=== PATIENT | male | born 1955 | race Caucasian/White ===

== ENCOUNTER 2022-07-27 14:34 | Inpatient (IN) | payer OTHER ==
[2022-07-27 14:56] VITALS: BMI 26.5
[2022-07-27] MEDS ORDERED: ONDANSETRON *ODT* 4 MG TABLET SL PRN (15:11)
[2022-07-27] MEDS ORDERED: METHOCARBAMOL 500 MG TABLET PO PRN (15:11)
[2022-07-27] MEDS ORDERED: MAGNESIUM HYDROX 2400MG/30ML ORAL SUSPENSION 30 ML CUP PO PRN (15:11)
[2022-07-27] MEDS ORDERED: IBUPROFEN 400 MG TABLET (FP) PO PRN (15:11)
[2022-07-27] MEDS ORDERED: POLYETHYLENE GLYCOL (HEALTHYLAX) 3350 17 GM PACKET PO PRN (15:11)
[2022-07-27] MEDS ORDERED: MAG HYDROX/AL HYDROX/SIMETH 30 ML UNIT-DOSE CUP PO PRN (15:11)
[2022-07-27] MEDS ORDERED: LORazepam 1 MG TABLET PO PRN (15:11)
[2022-07-27] MEDS ORDERED: NICOTINE 10 MG CARTRIDGE (INHALER) IH PRN (15:11)
[2022-07-27] MEDS ORDERED: BENZOCAINE/MENTHOL (CHLORASEPTIC ) LOZENGE MM PRN (15:11)
[2022-07-27] MEDS ORDERED: BISMUTH SUBSALICYLATE 524 MG/30 ML PO PRN (15:11)
[2022-07-27] MEDS ORDERED: DICYCLOMINE HCL 10 MG CAPSULE PO PRN (15:11)
[2022-07-27] MEDS ORDERED: hydrOXYzine PAMOATE 25 MG CAPSULE (FP) PO PRN (15:11)
[2022-07-27] MEDS ORDERED: ACETAMINOPHEN 325 MG TABLET (FP) PO PRN ×2 (15:11)
[2022-07-27] MEDS ORDERED: NALOXONE HCL (KLOXXADO) 8 MG SPRAY NS PRN (15:11)
[2022-07-27] MEDS ORDERED: LOPERAMIDE HCL 2 MG CAPSULE PO PRN (15:11)
[2022-07-27] MEDS ORDERED: cloNIDine HCL 0.1 MG TABLET PO STA ×2 (15:32→16:14)
[2022-07-27] MEDS ORDERED: LORazepam 2 MG TABLET PO ONE (15:36)
[2022-07-27] MEDS ORDERED: LORazepam 2 MG TABLET ONE (15:53)
[2022-07-27] MEDS ORDERED: cloNIDine HCL 0.1 MG TABLET ONE (15:53)
[2022-07-27] MEDS: IBUPROFEN 600 MG TABLET (FP) PO PRN (15:55)
[2022-07-27] MEDS ORDERED: IBUPROFEN 600 MG TABLET (FP) PO ONE (15:55)
[2022-07-27] MEDS: PRENATAL VITAMINS W/ FOLIC ACID TABLET (FP) PO SCH (16:00)
[2022-07-27] MEDS: LORazepam 2 MG TABLET PO SCH ×2 (17:30→22:31)
[2022-07-27] MEDS ORDERED: MELATONIN 5 MG TABLETS PO SCH (22:00)
[2022-07-27] MEDS: THIAMINE HCL 100 MG TABLET (FP) PO SCH (22:32)
[2022-07-28] MEDS: LORazepam 2 MG TABLET PO SCH ×4 (05:09→22:01)
[2022-07-28] MEDS: PRENATAL VITAMINS W/ FOLIC ACID TABLET (FP) PO SCH (10:17)
[2022-07-28 11:00] LABS: CALCIUM 8.6 mg/dL (8.5-10.1)
[2022-07-28 11:01] LABS: ALBUMIN 3.5 g/dl (3.4-5.0); BLOOD UREA NITROGEN 15.3 mg/dL (7-18)
[2022-07-28 11:04] LABS: CREATININE 0.9 mg/dL (0.55-1.3); HEMATOCRIT 47.5 % (35.4-49); HEMOGLOBIN 15.8 GM/dL (11.7-16.9); MCH 31.4 pg (25.7-33.7); MCHC 33.3 g/dl (32.0-35.9); MEAN CELL VOLUME 94.1 fl (80-96); MEAN PLT VOLUME 9.3 fl (7.5-11.1); PLATELET COUNT 188 10^3/uL (134-434); RBC 5.05 M/mm3 (4.00-5.60); WHITE BLOOD COUNT 7.4 K/mm3 (4.0-10.0)
[2022-07-28 11:05] LABS: BILIRUBIN,TOTAL 1.1 mg/dL (0.2-1)
[2022-07-28 11:06] LABS: TOT PROT 6.9 g/dl (6.4-8.2)
[2022-07-28] MEDS: LACTULOSE 20 GM/30 ML UDC (FOR ORAL USE ONLY) PO SCH ×2 (14:37→22:01)
[2022-07-28] MEDS: IBUPROFEN 600 MG TABLET (FP) PO PRN (22:00)
[2022-07-28] MEDS: THIAMINE HCL 100 MG TABLET (FP) PO SCH (22:00)
[2022-07-28] MEDS ORDERED: SUVOREXANT 10 MG TABLET PO PRN (22:00)
[2022-07-29] MEDS: LACTULOSE 20 GM/30 ML UDC (FOR ORAL USE ONLY) PO SCH ×3 (05:21→22:23)
[2022-07-29] MEDS: LORazepam 1 MG TABLET PO SCH ×4 (05:21→22:24)
[2022-07-29] MEDS: PRENATAL VITAMINS W/ FOLIC ACID TABLET (FP) PO SCH (10:21)
[2022-07-29] MEDS: THIAMINE HCL 100 MG TABLET (FP) PO SCH (22:24)
[2022-07-30] MEDS ORDERED: LORazepam 0.5 MG TABLET PO PRN
[2022-07-30] MEDS: LACTULOSE 20 GM/30 ML UDC (FOR ORAL USE ONLY) PO SCH ×3 (05:13→21:53)
[2022-07-30] MEDS: LORazepam 0.5 MG TABLET PO SCH ×4 (05:14→22:00)
[2022-07-30] MEDS: PRENATAL VITAMINS W/ FOLIC ACID TABLET (FP) PO SCH (10:26)
[2022-07-30] MEDS: amLODIPine BESYLATE 5 MG TABLET (FP) PO SCH (13:14)
[2022-07-30] MEDS ORDERED: BACITRACIN 3.5 GM OPTHALMIC OINT TUBE OS SCH ×2 (14:00)
[2022-07-30] MEDS: BACITRACIN/POLYMYXIN OPH OINT 3.5 GM TUBE OS SCH ×2 (15:04→21:57)
[2022-07-30] MEDS: CLOTRIMAZOLE 1% CREAM TP SCH ×2 (15:04→21:56)
[2022-07-30] MEDS: THIAMINE HCL 100 MG TABLET (FP) PO SCH (21:54)
[2022-07-31] MEDS ORDERED: LORazepam 0.5 MG TABLET PO ONE (05:00)
[2022-07-31] MEDS: LACTULOSE 20 GM/30 ML UDC (FOR ORAL USE ONLY) PO SCH ×2 (05:25→14:17)
[2022-07-31 09:02] VITALS: BP 152/86; PULSE 101; RESP 20; TEMP 97.8
[2022-07-31] MEDS: CLOTRIMAZOLE 1% CREAM TP SCH (10:08)
[2022-07-31] MEDS: BACITRACIN/POLYMYXIN OPH OINT 3.5 GM TUBE OS SCH (10:08)
[2022-07-31] MEDS: amLODIPine BESYLATE 5 MG TABLET (FP) PO SCH (10:08)
[2022-07-31] MEDS: PRENATAL VITAMINS W/ FOLIC ACID TABLET (FP) PO SCH (10:08)
== END 2022-07-31 11:11 | disposition home or self-care (01) | DRG 897 ==
LOC: YASAS 14:34 → Y3N 15:45
PROVIDERS: ADMIT Allergy & Immunology; ATTEND Surgery
PROC: HZ2ZZZZ Detoxification Services for Substance Abuse Treatment (ICD-10-PCS; principal; 2022-07-27)
DX: F10.230 Alcohol dependence with withdrawal, uncomplicated (principal); F19.282 Other psychoactive substance dependence with psychoactive substance-induced sleep disorder; F32.A Depression, unspecified; F43.10 Post-traumatic stress disorder, unspecified; G47.00 Insomnia, unspecified; I10 Essential (primary) hypertension; B35.3 Tinea pedis; R73.9 Hyperglycemia, unspecified; R79.89 Other specified abnormal findings of blood chemistry; Z87.891 Personal history of nicotine dependence; Z88.0 Allergy status to penicillin; Z88.8 Allergy status to other drugs, medicaments and biological substances
CPT/HCPCS: 36415; 71046-TC-FY; 80053; 82140; 83036; 85027; 86780; 93005; 93010; C9803-CS; U0003; U0005